=== PATIENT | male | born 1970 | race Caucasian/White ===

== ENCOUNTER 2019-09-02 15:52 | Outpatient (CLI) | payer BC, SELFPAY ==
--- NOTE | ~2019-09-02 | XR_ITS ---
XR chest 2V 09/02/2019 16:13 Indication: Cough. Tobacco use. Procedure: 2 view chest Comparison: 05/06/2019 Findings: Heart size normal. No focal air space disease, pulmonary edema, pleural effusion or suspect ed pneumothorax. No acute osseous abnormality. Impression: 1: No acute cardiopulmonary disease. Reviewed, dictated and finalized at location A. Impression: 1: No acute cardiopulmonary disease.
== END 2019-09-02 15:53 | disposition home or self-care (01) ==
LOC: ANHIMG 16:00
PROVIDERS: PCP Emergency Medicine; Visit Provider Emergency Medicine
DX: R05 Cough (principal); Z72.0 Tobacco use
CPT/HCPCS: 71046

== ENCOUNTER 2020-02-19 12:22 | Emergency (ER) | payer OTHER, SELFPAY ==
--- NOTE | ~2020-02-19 | XR_ITS ---
EXAMINATION: XR foot RT min 3V DATE: 02/19/2020 12:49 INDICATION: Medial right great toe and foot pain. TECHNIQUE: Dorsoplantar, two oblique and lateral views of the right foot were obtained. COMPARISON: None. FINDINGS: Alignment is normal. No fracture. Joint spaces are normal. Small plantar calcaneal spur. There is gas at the nailbed of the right great toe extending deep to the nail. No underlying cortical erosion to suggest osteomyelitis. IMPRESSION: 1. Nailbed injury at the right great toe. No underlying osseous abnormality. Reviewed, dictated and finalized at location A.
--- NOTE | 2020-02-19 12:27 | ED.LOWEXIN ---
HPI - Extremity Injury (Lower) General Chief Complaint: Extremity Injury, Lower Stated Complaint: injury right great toe Time Seen by Provider: 02/19/20 12:32 Source: patient and RN notes reviewed Mode of arrival: ambulatory Limitations: no limitations History of Present Illness HPI Narrative: 49-year-old male presents with concern for pain to the first digit of the right foot. Reports about a week ago he had toe on a coffee table. Reports since then he has had pain surrounding the nail of the toe. Reports he had a phone consult with his primary care doctor who wanted him to get an x-ray. His primary care doctor put him on antibiotic for a possible infection . He is unsure what the antibiotic was MD complaint: foot injury Injury: Right: toes Related Data Home Medications Medication Instructions Recorded Confirmed Unknown Antibiotic 02/19/20 tadalafil See Rx Instructions .ROUTE 02/19/20 02/19/20 .COMPLEX PRN Allergies Allergy/AdvReac Type Severity Reaction Status Date / Time sulfamethoxazole Allergy Unknown Unknown Verified 02/19/20 12:27 trimethoprim Allergy Unknown Unknown Verified 02/19/20 12:27 Review of Systems Review of Systems: Narrative: CONSTITUTIONAL: Denies malaise, chills, sweats, or fever. CARDIOVASCULAR: Denies chest pain, palpitations SKIN: Reports pain, redness first digit of the right foot surrounding the toenail MUSCULOSKELETAL: Reports pain in the first digit of the right foot NEUROLOGIC: Denies numbness, weakness. All systems reviewed & are unremarkable except as noted in HPI and below PMFSH Social History Social History (Updated 10/27/19 @ 11:32 by Brianne Snow) Smoking status: Former smoker Tobacco type: cigarettes Second hand tobacco smoke exposure: No Smoking end date: 09/05/19 Alcohol intake: never Substance use: never Gender identity (if verbalized by the patient): Male Comments At time of signature, agree with nursing past medical, surgical, social and family history. There is no relevant family history pertinent to the presenting complaint Exam Narrative: Exam Narrative: GENERAL: Well-appearing, well-nourished, and in no acute distress. HEAD: Normocephalic, atraumatic. EYES: PERRLA, conjunctivae clear NECK: Supple. CHEST: Speaks in full sentences. No respiratory distress. HEART: Regular rate and rhythm. Normal and equal peripheral pulses. EXTREMITIES: Right foot and digits has normal strength and sensation, no edema, normal range of motion. 5/5 strength with digit flexion and extension. Normal sensation with sensitivity to light touch and pain. No open wounds, no skin tenting, no devitalized tissue or atrophy, no trophic changes, no ecchymosis, no obvious deformity, alignment normal, no point tenderness, nearby joints and structures intact. Distal pulses palpable and equal bilaterally, skin warm, dry, pink. Capillary refill less than 3 seconds. SKIN: Warm, dry, no rash. Erythema, edema surrounding the nailbed of the first digit of the right foot consistent with paronychia NEURO: Alert and oriented x3. PSYCH: Normal mood and affect Course Course Emergency Course: Patient is aware of diagnosis, understands and agrees to treatment plan. Anticipatory guidance given. Patient agrees to follow-up as directed and is aware of reasons to seek care at the emergency department. Portions of this record may have been created with voice recognition software Vital Signs Vital signs: Vital Signs Temperature 98.6 F 02/19/20 12:32 Pulse Rate 114 H 02/19/20 12:32 Respiratory Rate 16 02/19/20 12:32 Blood Pressure 130/73 02/19/20 12:32 Pulse Oximetry 98 02/19/20 12:32 Temperature 98.6 F 02/19/20 12:32 Pulse Rate 114 H 02/19/20 12:32 Respiratory Rate 16 02/19/20 12:32 Blood Pressure 130/73 02/19/20 12:32 Pulse Oximetry 98 02/19/20 12:32 Reviewed. Pt has been instructed to follow up with his primary care provider within the next week k[place]
[2020-02-19 12:32] VITALS: BP 130/73; PULSE 114; RESP 16; TEMP 37; O2SAT 98
== END 2020-02-19 12:59 | disposition home or self-care (01) ==
PROVIDERS: Emergency Provider Nurse Practitioner; PCP Emergency Medicine
DX: L03.031 Cellulitis of right toe (principal); Z87.891 Personal history of nicotine dependence
CPT/HCPCS: 73630; 99213; G0463

== ENCOUNTER 2020-05-26 06:37 | Outpatient (NON) | payer SELFPAY ==
[2020-05-26 23:32] LABS: SARS-CoV-2 RNA PCR Negative
== END 2020-05-26 06:38 ==
PROVIDERS: PCP Emergency Medicine; Visit Provider Emergency Medicine
DX: R05 Cough (principal); Z20.828 Contact with and (suspected) exposure to other viral communicable diseases
CPT/HCPCS: 87635; C9803; U0003

== ENCOUNTER → 2020-05-28 13:17 | Outpatient (CLI) | payer SELFPAY ==
--- NOTE | ~2020-05-28 | XR_ITS ---
XR forearm LT 2V DATE: 05/28/2020 14:07 INDICATION: Left forearm pain TECHNIQUE: AP and lateral views COMPARISON: None FINDINGS: No fracture or dislocation, periosteal reaction or bone destruction. Normal alignment at th e elbow and wrist joints. IMPRESSION: Negative Reviewed, dictated and finalized at location A. CLE PAINTER IMPRESSION: Negative
--- NOTE | ~2020-05-28 | XR_ITS ---
XR chest 2V DATE: 05/28/2020 14:07 INDICATION: Productive cough TECHNIQUE: 2 views COMPARISON: 09/02/2019 PA and lateral chest FINDINGS: Normal heart size. No hilar or mediastinal enlargement. No pulmonary infiltrate or consolid ation, pleural effusion or pulmonary vascular congestion or pneumothorax. Diffuse osteopenia. IMPRESSION: No active cardiopulmonary disease Reviewed, dictated and finalized at location A. STANT COOK
== END ==
PROVIDERS: PCP Emergency Medicine; Visit Provider Emergency Medicine
DX: R05 Cough (principal); M79.622 Pain in left upper arm
CPT/HCPCS: 71046; 73090

== ENCOUNTER → 2020-08-28 15:57 | Outpatient (CLI) | payer BC, SELFPAY ==
--- NOTE | ~2020-08-28 | XR_ITS ---
XR foot RT min 3V, XR foot LT min 3V 08/28/2020 16:26 Indication: Bilateral foot pain Procedure: 4 views of each foot Comparison: 02/19/2020 Findings: Normal mineralization. Lisfranc joint intact bilaterally. Normal anatomic alignment. No for eign bodies. No focal soft tissue abnormality. There are small bilateral degenerative calcaneal enthe sophytes at the plantar surface. Impression: 1: No significant bone or joint abnormality. Reviewed, dictated and finalized at location A. MANAGER Impression: 1: No significant bone or joint abnormality. Impression: 1: No significant bone or joint abnormality.
--- NOTE | ~2020-08-28 | XR_ITS ---
XR lumbar spine 2-3V 08/28/2020 16:26 Indication: Low back pain Procedure: 3 views lumbar spine Comparison: No prior studies for comparison. Findings: No fracture or traumatic malalignment. Vertebral body heights are maintained. No significan t disc narrowing. No evidence for spondylolisthesis. Sacral foramen are symmetric. Pedicles are intac t. Impression: 1: No significant abnormality of the lumbar spine. Reviewed, dictated and finalized at location A. OR RESIDENT CARE DIRECTOR Impression: 1: No significant abnormality of the lumbar spine.
== END ==
PROVIDERS: PCP Emergency Medicine; Visit Provider Emergency Medicine
DX: M54.5 Low back pain (principal); M79.671 Pain in right foot; M79.672 Pain in left foot
CPT/HCPCS: 72100; 73630

== ENCOUNTER 2020-09-26 09:13 | Outpatient (CLI) | payer BC, SELFPAY ==
--- NOTE | 2020-10-12 12:47 | WPDHOMESLEEP ---
Sleep Study - Home Unattended Date of Study: 09/26/20 Ordering Provider: Dominick Duron MD Interpreting Provider: Nella Hsieh MD Home Sleep Study Type: Apnea Link Air Height: 1.79 m Weight: 117.027 kg Body Mass Index: 36.5 Neck Circumference (inches): 16.5 [place]: 13 Reason for Sleep Study Hypersomnia, witnessed apneas Sleep History Anthony Link is a 50 year-old man who does not have significant past medical history. He snores loudly, wakes up gasping for air and does not get a good night of sleep. He awakens repeatedly at night. He has a difficult time falling asleep and staying asleep. He always has a difficult time waking in the morning. His snoring is always loud enough that his complains. He occasionally awakens at night with heartburn, belching or coughing. He occasionally has trouble sleeping with a cold. He frequently wakes up gasping for breath at night. He constantly has breathing problems at night observed by others. He rarely sweats excessively at night or notices his heart pounding or beating irregularly night. He constantly falls asleep during the day, occasionally involuntarily but never while driving. He does not fall asleep during physical effort. He rarely has loss of muscle tone with strong emotion. 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 He rarely feels paralyzed on waking or falling asleep. He occasionally has vivid dreamlike scenes upon awakening or falling asleep. He never is afraid to go to sleep. He occasionally has nightmares, remembers his dreams, has racing thoughts, occasionally has feelings of sadness, depression and anxiety. He rarely has muscular tension. He occasionally notices parts of his body jerking, occasionally kicks at night, has crawling and aching feelings in his legs at night and has leg pain at night. He rarely has morning jaw pain. He rarely grinds his teeth during sleep. He frequently has fought bothered by pain during the day. He occasionally has awakened by pain at night, wakes up feeling stiff in the morning with sore achy muscles. He frequently wakes up with pain in the neck and spine. He has sexual problems. His bedtime is 11:00 p.m. and it varies how long it takes him to get to sleep anywhere between 10 minutes and an hour. He typically wakes up 4-5 times at night to go urinate or move to the recliner. he takes 15-30 minutes to return to sleep. Wakes the morning at 9:00 a.m.. He estimates getting 4 hours of sleep at a time without having to wake up. His weekend schedule is the same. He has erectile dysfunction. His excessive sleepiness interferes with his social life. He takes naps in the afternoon or evening. A short nap can be refreshing. He is usually drowsy in the morning for an hour or longer. He feels better in the afternoon. Habits: Tobacco; Quit a year ago. Caffeine 2-3 servings of tea daily. Alcohol on occasion. No recreational drugs. [facility] Past Medical History Medical History (Updated 10/12/20 @ 13:01 by Nella Hsieh MD) Arthritis Erectile dysfunction Surgical History Surgical History (Updated 07/26/20 @ 14:13 by Rosenda Hdez CMA) H/O foot surgery Family History Family History (Updated 07/26/20 @ 14:14 by Rosenda Hdez CMA) Father Heart disease Mother Heart disease Social History Social History Smoking status: Former smoker Tobacco type: cigarettes Second hand tobacco smoke exposure: No Smoking end date: 09/05/19 Alcohol intake: never Substance use: never Gender identity (if verbalized by the patient): Male Medications Home Medications Medication Instructions Recorded Confirmed Type Unknown Antibiotic 02/19/20 History tadalafil See Rx Instructions .ROUTE 02/19/20 02/19/20 History .COMPLEX PRN naproxen 500 mg tablet 500 mg PO BID 07/09/20 History Sleep Pr
[2020-10-12 12:55] VITALS: BMI 36.5
== END 2020-09-26 09:14 | disposition home or self-care (01) ==
LOC: ANHCSM 09:13
PROVIDERS: PCP Emergency Medicine; Visit Provider Internal Medicine Pulmonary Disease
DX: G47.33 Obstructive sleep apnea (adult) (pediatric) (principal)
CPT/HCPCS: 95806

== ENCOUNTER → 2020-10-26 00:32 | Outpatient (CLI) | payer BC, SELFPAY ==
[2020-10-26 18:42] LABS: SARS-CoV-2 RNA PCR Negative
== END ==
PROVIDERS: PCP Emergency Medicine; Visit Provider Internal Medicine Critical Care Medicine
DX: Z01.812 Encounter for preprocedural laboratory examination (principal); Z20.822 Contact with and (suspected) exposure to COVID-19
CPT/HCPCS: C9803; U0003; U0005

== ENCOUNTER 2020-10-29 08:09 | Outpatient (CLI) | payer BC, SELFPAY ==
--- NOTE | 2020-11-09 10:35 | WPDSLEEPSTUD ---
Sleep Study Date of Study: 10/29/20 Ordering Provider: Dominick Duron MD Primary Care is Hood Myers MD Interpreting Physician: Nella Hsieh MD Sleep Study Type: CPAP Titration Height: 1.78 m Weight: 113.398 kg Body Mass Index: 35.9 Neck Circumference (inches): 18 [place]: 10 Reason for Sleep Study 09/26/2020 Home sleep with severe obstructive sleep apnea; AHI 51, profound hypoxemia to 40% and the majority of the night 53%, 220 minutes spent below 88%. He had multiple desaturations and snoring, presents for CPAP titration. Sleep History Anthony Link is a 50 year-old man who does not have significant past medical history. He snores loudly, wakes up gasping for air and does not get a good night of sleep. He awakens repeatedly at night. He has a difficult time falling asleep and staying asleep. He always has a difficult time waking in the morning. His snoring is always loud enough that his complains. He occasionally awakens at night with heartburn, belching or coughing. He occasionally has trouble sleeping with a cold. He frequently wakes up gasping for breath at night. He constantly has breathing problems at night observed by others. He rarely sweats excessively at night or notices his heart pounding or beating irregularly night. He constantly falls asleep during the day, occasionally involuntarily but never while driving. He does not fall asleep during physical effort. He rarely has loss of muscle tone with strong emotion. 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 He rarely feels paralyzed on waking or falling asleep. He occasionally has vivid dreamlike scenes upon awakening or falling asleep. He never is afraid to go to sleep. He occasionally has nightmares, remembers his dreams, has racing thoughts, occasionally has feelings of sadness, depression and anxiety. He rarely has muscular tension. He occasionally notices parts of his body jerking, occasionally kicks at night, has crawling and aching feelings in his legs at night and has leg pain at night. He rarely has morning jaw pain. He rarely grinds his teeth during sleep. He frequently is bothered by pain during the day. He occasionally has awakened by pain at night, wakes up feeling stiff in the morning with sore achy muscles. He frequently wakes up with pain in the neck and spine. He has sexual problems. His bedtime is 11:00 p.m. and it varies how long it takes him to get to sleep, anywhere between 10 minutes to an hour. He typically wakes up 4-5 times at night to go urinate or move to the recliner. He takes 15-30 minutes to return to sleep, wakes the morning at 9:00 a.m.. He estimates getting 4 hours of sleep at a time without having to wake up. His weekend schedule is the same. He has erectile dysfunction. His excessive sleepiness interferes with his social life. He takes naps in the afternoon or evening. A short nap can be refreshing. He is usually drowsy in the morning for an hour or longer. He feels better in the afternoon. Habits: Tobacco; Quit a year ago. Caffeine 2-3 servings of tea daily. Alcohol on occasion. No recreational drugs. [facility] Past Medical History Medical History (Updated 11/09/20 @ 10:40 by Nella Hsieh MD) Arthritis Erectile dysfunction Obstructive sleep apnea Surgical History Surgical History (Updated 07/26/20 @ 14:13 by Rosenda Hdez CMA) H/O foot surgery Family History Family History (Updated 07/26/20 @ 14:14 by Rosenda Hdez CMA) Father Heart disease Mother Heart disease Social History Social History Smoking status: Former smoker Tobacco type: cigarettes Second hand tobacco smoke exposure: No Smoking end date: 09/05/19 Alcohol intake: never Substance use: never Gender identity (if verbalized by the patient): Male Medications Home Medications Medication Instructi
[2020-11-09 11:01] VITALS: BMI 35.9
== END 2020-10-29 08:10 | disposition home or self-care (01) ==
LOC: ANHCSM 08:10
PROVIDERS: PCP Emergency Medicine; Visit Provider Internal Medicine Pulmonary Disease
DX: G47.33 Obstructive sleep apnea (adult) (pediatric) (principal)
CPT/HCPCS: 95811

== ENCOUNTER 2021-09-29 21:26 | Emergency (ER) | payer BC, SELFPAY ==
[2021-09-29 21:34] VITALS: BP 152/88; PULSE 95; RESP 16; TEMP 36.6; O2SAT 100
[2021-09-29 21:38] LABS: Basophils Absolute Auto 0.1 K/mm3 (0.0-0.1); Basophils Percent Auto 0.8 % (0.2-1.2); Eosinophils Absolute Auto 0.3 K/mm3 (0-0.3); Eosinophils Percent Auto 2.2 % (0-4.4); Hematocrit 51.1 % (42.0-52.0); Hemoglobin 16.7 g/dL (14.0-18.0); Immature Granulocyte Absolute 0.05 K/mm3 (0.00-0.031); Immature Granulocyte Percent A 0.4 % (0-0.5); Lymphocytes Absolute Auto 3.65 K/mm3 (0.9-3.2); Lymphocytes Percent Auto 31.1 % (18.3-44.2); Mean Corpuscular HGB Conc 32.7 g/dl (32-36); Mean Corpuscular Hemoglobin 30.1 pg (26-34); Mean Corpuscular Volume 92.1 fl (80-100); Mean Platelet Volume 9.9 fl (7.4-10.4); Monocytes Absolute Auto 0.8 K/mm3 (0.1-0.6); Monocytes Percent Auto 7.1 % (2.6-8.5); Neutrophils Absolute Auto 6.9 K/mm3 (1.3-6.7); Neutrophils Percent Auto 58.4 % (45.5-73.1); Platelet Count Result 282 k/mm3 (150-375); Red Blood Count 5.55 M/mm3 (4.6-6.20); Red Cell Distribution Width 13.3 % (11.5-14.5); White Blood Count 11.8 K/mm3 (4.5-10.0)
[2021-09-29 21:48] LABS: Alanine Aminotransferase 28 U/L (4-50); Albumin Level 4.6 g/dL (3.5-5.1); Alkaline Phosphatase 63 U/L (38-126); Anion Gap 10 mmol/L (8-16); Aspartate Amino Transferase 28 U/L (17-59); Bilirubin,Total 0.5 mg/dL (0.2-1.3); Blood Urea Nitrogen 21 mg/dL (9-20); Calcium 9.3 mg/dL (8.4-10.2); Carbon Dioxide 24 mmol/L (22-30); Chloride 108 mmol/L (98-107); Estimated CRCL calculation 87 ml/min; Estimated Glomerular Filt Rate > 60; Glucose 133 mg/dL (65-110); Lipase 46 U/L (23-300); Potassium 4.1 mmol/L (3.4-5.0); Sodium 142 mmol/L (137-145)
--- NOTE | 2021-09-29 22:08 | ED.GENADULT ---
HPI - General Adult General Chief complaint: Abdominal Pain Stated complaint: flank pain Time Seen by Provider: 09/29/21 22:00 History of Present Illness HPI narrative: 51-year-old male presents the emergency room with acute onset of left lateral chest wall pain. Patient states the pain began while he was sitting down earlier this afternoon. Patient states that pain is worse when he rotates his trunk to the right and bends his trunk to the left. States pain is not worse with inspiration. Patient does not have a history of kidney stones. Patient denies dysuria or difficulty voiding. Patient has not taking any medications to alleviate his symptoms. Patient denies injury or trauma Related Data Home Medications Medication Instructions Recorded Confirmed meloxicam 15 mg tablet 15 mg PO DAILY tablet 08/15/21 09/06/21 Allergies Allergy/AdvReac Type Severity Reaction Status Date / Time sulfamethoxazole Allergy Unknown Rash Verified 09/06/21 13:28 trimethoprim Allergy Unknown Rash Verified 09/06/21 13:28 Review of Systems Review of Systems: CONSTITUTIONAL: Denies fever, chills, or sweats. EYES: Denies visual changes, redness, or discharge. ENT: Denies rhinorrhea, congestion, sore throat, or otalgia. CARDIOVASCULAR: Denies chest pain, palpitations, or edema. RESPIRATORY: Denies cough or dyspnea. GASTROINTESTINAL: Denies abdominal pain, nausea, vomiting, or diarrhea. GENITOURINARY: Denies dysuria or hematuria. SKIN: Denies rash or itching. MUSCULOSKELETAL: Reports left lateral rib pain NEUROLOGIC: Denies headache, numbness, dizziness, or weakness. PSYCHIATRIC: Denies anxiety or depression. [facility] Past Medical History Medical History Arthritis Erectile dysfunction Obstructive sleep apnea Sjogren's syndrome Surgical History Surgical History H/O foot surgery History of myringotomy History of tonsillectomy and adenoidectomy Family History Family History Father Heart disease Pulmonary fibrosis Mother Heart disease History of aortic valve replacement Social History Social History Smoking packs per day: 1 Smoking cigarettes per day: 20.0 Years smoked: 30 Smoking pack-years: 30.00 Smoking status: Former smoker Tobacco type: cigarettes Second hand tobacco smoke exposure: No Smoking end date: 09/05/19 Alcohol intake: current Drinks per week: 6 Substance use: never Substance use type: does not use 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 HEAD: Normocephalic, atraumatic. EYES: PERRLA and EOMI. CHEST: Clear to auscultation. No respiratory distress. No wheezes rales or rhonchi HEART: Regular rate and rhythm. No murmur heard. Normal peripheral pulses. ABDOMEN: Soft, nontender, nondistended, normal active bowel sounds. No CVA tenderness EXTREMITIES: Normal range of motion. No edema. BACK: tenderness to the left lateral ninth rib. No ecchymosis or soft tissue swelling noted. SKIN: Warm, dry, no rash. NEURO: No focal deficits. Alert and oriented x3. PSYCH: Normal mood and affect. Course Vital Signs Vital signs: Vital Signs Temperature 36.6 C 09/29/21 21:34 Pulse Rate 95 09/29/21 21:34 Respiratory Rate 16 09/29/21 21:34 Blood Pressure 152/88 H 09/29/21 21:34 Pulse Oximetry 100 09/29/21 21:34 Temperature 36.6 C 09/29/21 21:34 Pulse Rate 98 09/29/21 23:14 Respiratory Rate 18 09/29/21 23:14 Blood Pressure 130/81 09/29/21 23:14 Pulse Oximetry 99 09/29/21 23:14 Medical Decision Making MDM Narrative Medical decision making narrative: 51-year-old male presents emergency room
[2021-09-29 23:10] LABS: Add Urine Microscopic? NO; Appearance Urine Clear (Clear); Bilirubin Urine Negative (Negative); Blood Urine Negative (Negative); Color Urine Yellow (Yellow); Glucose Urine UA Negative (Negative); Ketones Urine Negative (Negative); Leukocyte Esterase Ur Negative LEU/UL (Negative); Nitrate Urine Negative (Negative); Protein Urine Negative (Negative); Specific Grav Ur >= 1.030 (1.001-1.035); Urobilinogen Urine 0.2 mg/dL (<2.0)
[2021-09-29 23:14] VITALS: BP 130/81; PULSE 98; RESP 18; O2SAT 99
[2021-09-29 23:40] VITALS: BP 121/84; PULSE 90; RESP 18; O2SAT 99
== END 2021-09-29 23:45 | disposition home or self-care (01) ==
PROVIDERS: Emergency Medicine; Emergency Provider Nurse Practitioner Family; PCP Internal Medicine
DX: R07.89 Other chest pain (principal); M19.90 Unspecified osteoarthritis, unspecified site; G47.33 Obstructive sleep apnea (adult) (pediatric); M35.00 Sjogren syndrome, unspecified; Z87.891 Personal history of nicotine dependence
CPT/HCPCS: 36415; 80053; 81003; 83690; 85025; 99283